=== PATIENT | female | born 1975 | race Caucasian/White ===

== ENCOUNTER 2016-11-01 11:17 | Emergency (ER) | payer MEDICARE, MEDICAID ==
[~2016-11-01] VITALS: Ht 157.5 cm; Wt 62.6 kg
--- OUTSIDE RECORDS SUMMARY | 2016-11-01 11:25 | XMS REPORT | Continuity of Care Document ---
Author Author Interface Organization Interface Address Unknown Phone Unavailable Problems Problem Status Onset Date Classification Date Reported Comments Source No data available for this section Problem 05/16/2015 [employer] Medications Medication Details Route Status Patient Instructions Ordering Provider Order Date Source No Known Medications No known medications Active [employer] Allergies, Adverse Reactions, Alerts Substance Category Reaction Severity Reaction type Status Date Reported Comments Source Meperidine Assertion Drug allergy [employer] Immunizations Immunization Date Given Site Status Last Updated Comments Source No data available for this section No data available for this section [employer] Results Order Name Results Value Reference Range Date Interpretation Comments Source Vital Signs Vital Sign Value Date Comments Source Encounters Location Location Details Encounter Type Encounter Number Reason For Visit Attending Provider ADM Date DC Date Status Source [facility] [id number] Outpatient [id number] Mireille Puls 03/14/2015 04/11/2015 [id number] [id number] Mireille Puls 04/12/2015 05/12/2015 [facility] [employer] [facility] [id number] Mireille Puls 03/14/2015 04/12/2015 [employer] [id number] Mireille Puls 04/12/2015 05/13/2015 [employer] Procedures Procedure Code Date Perfomer Comments Source No data available for this section [employer]
[2016-11-01] MEDS ORDERED: DULO30CA3 PO ×2 (11:52→13:48)
[2016-11-01] MEDS ORDERED: ONDA8TAB6 PO (11:52)
[2016-11-01] MEDS ORDERED: OMEP20CA12 PO (11:52)
[2016-11-01] MEDS ORDERED: DULO60CA6 PO ×2 (11:52→13:48)
[2016-11-01] MEDS ORDERED: RT-ALBUINH IH (11:52)
[2016-11-01] MEDS ORDERED: INSU100V16 SQ (11:52)
[2016-11-01] MEDS ORDERED: IBUP-1780 PO (11:52)
[2016-11-01] MEDS ORDERED: BUDE10.2 IH (11:52)
[2016-11-01] MEDS ORDERED: CLON2TAB3 PO ×2 (11:52→13:48)
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
[2016-11-01] MEDS ORDERED: LORazepam INJ 2 MG/ML (ATIVAN) VIAL IVP ONE (12:30)
[2016-11-01] MEDS ORDERED: DULoxetine 30 MG (CYMBALTA) CAP PO ONE ×2 (12:30)
[2016-11-01] MEDS ORDERED: ONDANSETRON 4 MG/2 ML (SDV) Z0FRAN IM ONE (12:30)
[2016-11-01 12:43] LABS: BILIRUBIN,URINE NEGATIVE (NEGATIVE); KETONES,URINE NEGATIVE (NEGATIVE); LEUKOCYTE ESTERASE ,URINE 1+ (NEGATIVE); NITRITE,URINE NEGATIVE (NEGATIVE); PH,URINE 6 (5-9); PROTEIN,URINE 1+ (NEGATIVE); UROBILINOGEN,URINE NORMAL (NORMAL)
[2016-11-01] MEDS ORDERED: LORazepam INJ 2 MG/ML (ATIVAN) VIAL IM ONE (12:45)
[2016-11-01 12:56] LABS: SQUAMOUS EPITHELIAL CELL,UR >50 /HPF
[2016-11-01] MEDS ORDERED: HALOPERIDOL 5 MG/ML (HALDOL) AMP IM ONE (14:00)
[2016-11-01 15:04] VITALS: BP 141/73
== END 2016-11-01 14:44 | disposition home or self-care (01) ==
LOC: ER 11:21
DX: F41.9 Anxiety disorder, unspecified (principal); F32.9 Major depressive disorder, single episode, unspecified; Z76.0 Encounter for issue of repeat prescription; E11.9 Type 2 diabetes mellitus without complications; F17.210 Nicotine dependence, cigarettes, uncomplicated; Z79.4 Long term (current) use of insulin
CPT/HCPCS: 81000; 87088; 96372; 99283

== ENCOUNTER 2017-05-16 17:29 | Emergency (ER) | payer MEDICARE, MEDICAID ==
[~2017-05-16] VITALS: Ht 162.6 cm; Wt 68.0 kg
[~2017-05-16 17:29] MED LIST: BUDE10.2 IH; CLON2TAB3 PO; DULO30CA3 PO; DULO60CA6 PO; IBUP-1780 PO; INSU100V16 SQ; OMEP20CA12 PO; ONDA8TAB6 PO; RT-ALBUINH IH
[2017-05-16] MEDS ORDERED: RT-ALBUINH IH (17:43)
--- NOTE | 2017-05-16 17:44 | ED Respiratory ---
General Chief Complaint: Respiratory Problems Stated Complaint: TROUBLE BREATHING Source: patient Exam Limitations: no limitations History of Present Illness Time seen by provider: 17:41 Initial Comments To ER with an advocate from the [facility] with reports of troubles breathing. Patient has emphysema and asthma and she takes Dulera and pro-air inhaler. She is unable to take diaz burris for her albuterol inhaler and her insurance will not cover it. She denies being short of breath currently. Timing/Duration: this morning Severity: moderate Allergies and Home Medications Allergies Coded Allergies: eszopiclone (Unverified Allergy, Unknown, HEART STOPPED, 11/01/16) zolpidem (Unverified Allergy, Unknown, 11/01/16) sertraline (Unverified Adverse Reaction, Unknown, 11/01/16) Home Medications Albuterol Sulfate 8.5 Gm Hfa.aer.ad, 2 PUFF IH PRN, #17 (Reported) Budesonide/Formoterol Fumarate 10.2 Gm Hfa.aer.ad, 2 PUFF IH BID, (Reported) Clonazepam 2 Mg Tablet, 4 MG PO HS & PRN, #90 (Reported) Clonazepam 2 Mg Tablet, 2 MG PO TID PRN for ANXIETY, #15 Ref 0 Prescribed by: BONY YIN on 11/01/16 1348 Duloxetine HCl 30 Mg Capsule.dr, 30 MG PO DAILY, (Reported) Duloxetine HCl 60 Mg Capsule.dr, 60 MG PO DAILY, (Reported) Duloxetine HCl 30 Mg Capsule.dr, 30 MG PO DAILY, #5 Ref 0 Prescribed by: BONY YIN on 11/01/16 1348 Duloxetine HCl 60 Mg Capsule.dr, 60 MG PO DAILY, #5 Ref 0 Prescribed by: BONY YIN on 11/01/16 1348 Ibuprofen 800 Mg Tablet, 800 MG PO Q8H PRN for PAIN, (Reported) Insulin Aspart 100 Unit/1 Ml Susp, 1,000 UNIT SQ, (Reported) Omeprazole 20 Mg Capsule.dr, 20 MG PO DAILY, (Reported) Ondansetron HCl 8 Mg Tablet, 8 MG PO DAILY, (Reported) Constitutional: see HPI EENTM: see HPI Respiratory: see HPI, short of breath Cardiovascular: no symptoms reported Genitourinary: no symptoms reported Musculoskeletal: no symptoms reported Skin: no symptoms reported Psychiatric/Neurological: No Symptoms Reported Past Sxwoeog-Cjuxib-Cxcdih Hx Patient Social History Recent Foreign Travel: No Contact w/Someone Who Travel: No Recent Hopitalizations: No Immunizations Up To Date Date of Pneumonia Vaccine: Oct 13, 2015 Date of Influenza Vaccine: Aug 13, 2016 Seasonal Allergies Seasonal Allergies: Yes Surgeries HX Surgeries: Yes (NASAL RECONSTRUCTION, D&C X 4, BILAT KNEE SURGERIES, CARPAL TUNNEL RELEASE) Surgeries: Section, Gallbladder, Hysterectomy, Orthopedic Respiratory Hx Respiratory Disorders: Yes Respiratory Disorders: Asthma, Emphysema Cardiovascular Hx Cardiac Disorders: Yes (HEART DAMAGE FROM DIABETES) Neurological Hx Neurological Disorders: Yes Neurological Disorders: Headaches /Migraines, Neuropathy Genitourinary Hx Genitourinary Disorders: Yes Genitourinary Disorders: Renal Failure Gastrointestinal Hx Gastrointestinal Disorders: Yes (GASTROPARESIS) Musculoskeletal Hx Musculoskeletal Disorders: Yes ("chronic pain all over") Musculoskeletal Disorders: Arthritis, Chronic Back Pain Endocrine Hx Endocrine Disorders: Yes Endocrine Disorders: Diabetes, Non-Insulin dep Psychosocial Hx Psychiatric Problems: Yes Behavioral Health Disorders: ADD/ADHD, Anxiety, Personality Disorder, Depression Family Medical History Significant Family History: No Pertinent Family Hx Physical Exam Vital Signs Capillary Refill : General Appearance: WD/WN, no apparent distress Eyes: Bilateral Eye EOMI, Bilateral Eye Normal Inspection, Bilateral Eye PERRL HEENT: PERRL/EOMI, normal ENT inspection Neck: non-tender, full range of motion Respiratory: lungs clear, normal breath sounds, no respiratory distress, no accessory muscle use, No decreased breath sounds, No crackles, No rales, No rhonchi, No stridor, No wheezing Cardiovascular: regular rate, rhythm, no murmur Gastrointestinal: normal bowel sounds, non tender, soft Extremities: normal range of motion, non-tender Neurologic/Psychiatric: alert, normal mood/affect, oriented x 3 Skin: normal color, warm/dry Progress/Results/Core Measures Results/Orders My Orders Orders - YAA DIALLO APRN Rx-Albuterol Inhaler (Rx-Proair) (05/16/17 17:40) Departure Impression Impression: Primary Impression: Encounter for medication refill Disposition: HOME, SELF-CARE Condition: Stable Departure-Patient Inst. Decision time for Depature: 17:42 Referrals: NO,LOCAL PHYSICIAN (PCP/Family) Primary Care Physician Patient Instructions: NO INSTRUCTIONS GIVEN Add. Discharge Instructions: All discharge instructions reviewed with patient and/or family. Voiced understanding. Scripts Albuterol Sulfate (PROAIR HFA) 1 Puff Puff 2 PUFF IH Q4H Y for WHEEZING, #1 PUFF Diagnosis: reactive airway disease Prov: YAA DIALLO APRN 05/16/17 YAA DIALLO APRN May 16, 2017 17:44
[2017-05-16] MEDS: RX-ALBUTEROL INHALER (PROAIR) 8 GM IH STA (17:52)
[2017-05-16 18:00] VITALS: BP 115/82
== END 2017-05-16 18:00 | disposition home or self-care (01) ==
LOC: EDUNIT# 17:29 → ER 17:30
DX: J43.9 Emphysema, unspecified (principal); J45.909 Unspecified asthma, uncomplicated; G43.909 Migraine, unspecified, not intractable, without status migrainosus; M19.90 Unspecified osteoarthritis, unspecified site; G89.29 Other chronic pain; E11.40 Type 2 diabetes mellitus with diabetic neuropathy, unspecified; F90.9 Attention-deficit hyperactivity disorder, unspecified type; F41.9 Anxiety disorder, unspecified; F60.9 Personality disorder, unspecified; F32.9 Major depressive disorder, single episode, unspecified; Z86.79 Personal history of other diseases of the circulatory system; Z87.59 Personal history of other complications of pregnancy, childbirth and the puerperium; Z98.890 Other specified postprocedural states; Z90.710 Acquired absence of both cervix and uterus; Z79.4 Long term (current) use of insulin
CPT/HCPCS: 99283

== ENCOUNTER 2019-04-14 07:26 | Emergency (ER) | payer MEDICARE, MEDICAID ==
[~2019-04-14] VITALS: Ht 154.9 cm; Wt 77.6 kg
[~2019-04-14 07:26] MED LIST changes: +CLON2TAB12 PO; -CLON2TAB3 PO
[2019-04-14] MEDS ORDERED: KETOROLAC 60 MG/2 ML VIAL IM STA (07:44)
[2019-04-14] MEDS ORDERED: PROMETHAZINE INJ 25 MG/ML (PHENERGAN) AMP IM STA (07:44)
[2019-04-14] MEDS ORDERED: diphenhydrAMINE 50 MG/ML INJ (BENADRYL) IM STA (07:44)
--- NOTE | 2019-04-14 07:52 | ED Headache ---
General Stated Complaint: HEADACHE; VOMITING Source: patient History of Present Illness Date Seen by Provider: Apr 14, 2019 Time Seen by Provider: 07:35 Initial Comments 43-year-old female presenting with complaints of right-sided migraine headache. She has a history of migraines and this feels similar to her usual migraine headache. She is out of her Imitrex that she normally takes for migraines and developed a headache overnight. She has nausea and vomiting with this. It has been going on since around 3 AM. Finally this morning she came in to the ER because she was tired of hearing. She plans to contact her primary doctor after the clinic opens about refilling her Imitrex. She denies any fever or chills. She's had no numbness or tingling. She has no symptoms of normal for her regular migraine headaches. Allergies and Home Medications Allergies Coded Allergies: eszopiclone (Unverified Allergy, Unknown, HEART STOPPED, 11/01/16) zolpidem (Unverified Allergy, Unknown, 11/01/16) sertraline (Unverified Adverse Reaction, Unknown, 11/01/16) Home Medications Albuterol Sulfate 8.5 Gm Hfa.aer.ad, 2 PUFF IH PRN, (Reported) Albuterol Sulfate 1 Puff Puff, 2 PUFF IH Q4H PRN for WHEEZING Diagnosis: reactive airway disease Prescribed by: YAA DIALLO on 05/16/17 174 Budesonide/Formoterol Fumarate 10.2 Gm Hfa.aer.ad, 2 PUFF IH BID, (Reported) Clonazepam 2 Mg Tablet, 4 MG PO HS & PRN, (Reported) Clonazepam 2 Mg Tablet, 2 MG PO TID PRN for ANXIETY Prescribed by: BONY YIN on 11/01/16 134 Duloxetine HCl 30 Mg Capsule.dr, 30 MG PO DAILY, (Reported) Duloxetine HCl 60 Mg Capsule.dr, 60 MG PO DAILY, (Reported) Duloxetine HCl 30 Mg Capsule.dr, 30 MG PO DAILY Prescribed by: BONY YIN on 11/01/16 1348 Duloxetine HCl 60 Mg Capsule.dr, 60 MG PO DAILY Prescribed by: BONY YIN on 11/01/16 1348 Ibuprofen 800 Mg Tablet, 800 MG PO Q8H PRN for PAIN, (Reported) Omeprazole 20 Mg Capsule.dr, 20 MG PO DAILY, (Reported) Ondansetron HCl 8 Mg Tablet, 8 MG PO DAILY, (Reported) Patient Home Medication List Home Medication List Reviewed: Yes Review of Systems Review of Systems Constitutional: see HPI Eyes: Photophobia Ears, Nose, Mouth, Throat: no symptoms reported Respiratory: no symptoms reported Cardiovascular: no symptoms reported Gastrointestinal: see HPI Genitourinary: No dysuria Musculoskeletal: neck pain (tension in the back of her neck which is typical with her headaches) Skin: no symptoms reported Psychiatric/Neurological: Headache (right-sided migraine headache); Denies Numbness, Denies Paresthesia, Denies Weakness Past Zhoeheo-Knmoyf-Wlikrr Hx Past Med/Social Hx: Reviewed Nursing Past Med/Soc Hx Patient Social History Recent Hopitalizations: No Immunizations Up To Date Date of Pneumonia Vaccine: Oct 13, 2015 Date of Influenza Vaccine: Aug 13, 2016 Seasonal Allergies Seasonal Allergies: Yes Past Medical History Surgeries: Yes (NASAL RECONSTRUCTION, D&C X 4, BILAT KNEE SURGERIES, CARPAL TUNNEL RELEASE) Section, Gallbladder, Hysterectomy, Orthopedic Respiratory: Yes Asthma, Emphysema Cardiac: Yes (HEART DAMAGE FROM DIABETES) Neurological: Yes Headaches /Migraines, Neuropathy Renal Failure Gastrointestinal: Yes (GASTROPARESIS) Musculoskeletal: Yes ("chronic pain all over") Arthritis, Chronic Back Pain Endocrine: Yes Diabetes, Non-Insulin dep Psychosocial: Yes ADD/ADHD, Anxiety, Personality Disorder, Depression Family Medical History No Pertinent Family Hx Physical Exam Vital Signs Vital Signs - First Documented 04/14/19 07:37 Temp 96.1 Pulse 89 Resp 18 B/P (MAP) 132/97 (109) Pulse Ox 95 Capillary Refill : Height, Weight, BMI Height: 5'4.00" Weight: 150lbs. oz. [id number]; BMI Method:Estimated General Appearance: WD/WN, mild distress HEENT: PERRL/EOMI, normal ENT inspection, pharynx normal Neck: non-tender, full range of motion, supple, normal inspection Cardiovascular: normal peripheral pulses, regular rate, rhythm Respiratory: chest non-tender, lungs clear, normal breath sounds Psychiatric: alert, oriented x 3 Crainal Nerves: normal hearing, normal speech, PERRL Coordination/Gait: normal gait Motor/Sensory: no motor deficit, no sensory deficit Skin: normal color, warm/dry Progress/Results/Core Measures Results/Orders My Orders Orders - ENYART,UMU E MD Ketorolac Injection (Toradol Injection) (04/14/19 07:44) Diphenhydramine Injection (Benadryl Inje (04/14/19 07:44) Promethazine Injection (Phenergan Injec (04/14/19 07:44) Vital Signs/I&O 04/14/19 04/14/19 07:37 07:55 Temp 96.1 96.1 Pulse 89 89 Resp 18 18 B/P (MAP) 132/97 (109) 132/97 (109) Pulse Ox 95 95 Progress Progress Note : Progress Note Give Toradol, Benadryl, Phenergan IM injections and patient to go home and rest. Counseled to check with Dr. Hughes during office hours about refilling the Imitrex. Departure Impression Primary Impression: Migraine headache without aura Qualified Codes: G43.009 - Migraine without aura, not intractable, without status migrainosus Disposition: 01 HOME, SELF-CARE Condition: Stable Departure-Patient Inst. Decision time for Depature: 07:51 Referrals: DESTIN HUGHES DO (PCP/Family) Primary Care Physician Patient Instructions: Migraine Headache (DC) Add. Discharge Instructions: Rest in a cool dark room. Contact Dr. Hughes's office about a refill of your routine medicines for your Migraine headaches Stay well hydrated and get plenty of rest UMU WALTER MD Apr 14, 2019 07:52
[2019-04-14 07:55] VITALS: BP 132/97
== END 2019-04-14 07:58 | disposition home or self-care (01) ==
LOC: EDUNIT# 07:26 → ER FS 07:28
DX: G43.009 Migraine without aura, not intractable, without status migrainosus (principal); J43.9 Emphysema, unspecified; J45.909 Unspecified asthma, uncomplicated; E11.43 Type 2 diabetes mellitus with diabetic autonomic (poly)neuropathy; K31.84 Gastroparesis; E11.69 Type 2 diabetes mellitus with other specified complication; I99.9 Unspecified disorder of circulatory system; F90.9 Attention-deficit hyperactivity disorder, unspecified type; F41.9 Anxiety disorder, unspecified; F60.9 Personality disorder, unspecified; Z88.8 Allergy status to other drugs, medicaments and biological substances; Z90.710 Acquired absence of both cervix and uterus
CPT/HCPCS: 99284

== ENCOUNTER → 2020-07-17 | Outpatient (CLI) | payer MEDICARE, MEDICAID ==
[~2020-07-17] MED LIST changes: -OMEP20CA12 PO; +OMEP20CA18 PO
== END ==
LOC: CARD 11:00
PROVIDERS: ATTEND Internal Medicine Cardiovascular Disease
DX: I10 Essential (primary) hypertension (principal); E78.5 Hyperlipidemia, unspecified; E11.69 Type 2 diabetes mellitus with other specified complication; B19.20 Unspecified viral hepatitis C without hepatic coma
CPT/HCPCS: 93306

== ENCOUNTER → 2020-12-04 | Outpatient (CLI) | payer MEDICARE, MEDICAID ==
[~2020-12-04] MED LIST changes: +RT-ALBUTEROL SULF 2.5 MG/3 ML PRE-MIX VIAL INH ONE
== END ==
LOC: RT 15:09
PROVIDERS: ATTEND Nurse Practitioner Family
DX: J43.8 Other emphysema (principal); I51.9 Heart disease, unspecified; G47.9 Sleep disorder, unspecified
CPT/HCPCS: 94060; 94726; 94729

== ENCOUNTER → 2022-05-16 | Outpatient (CLI) | payer MEDICARE, MEDICAID ==
[~2022-05-16] MED LIST changes: -DULO60CA6 PO; +DULO60CA7 PO; -RT-ALBUTEROL SULF 2.5 MG/3 ML PRE-MIX VIAL INH ONE
== END ==
LOC: CARDFS 11:56
PROVIDERS: ATTEND Physician Assistant
DX: Q21.1 Atrial septal defect (principal); I51.7 Cardiomegaly
CPT/HCPCS: 93306

== ENCOUNTER 2022-05-24 11:07 | Emergency (ER) | payer MEDICARE, MEDICAID ==
[~2022-05-24] VITALS: Ht 157 cm; Wt 52.3 kg
[2022-05-24] MEDS ORDERED: morphine INJ 10 MG/ML 1ML (SYR OR VIAL) IM STA (11:26)
[2022-05-24] MEDS ORDERED: ONDANSETRON 4 MG (ZOFRAN) ORAL DISSOLVE TAB PO STA (11:26)
--- NOTE | 2022-05-24 12:19 | Diagnostic Imaging Report ---
INDICATION: Trauma, right hand pain. TECHNIQUE: Three views of the right hand. CORRELATION STUDY: None FINDINGS: Comminuted impacted, hourly displaced fracture at the 4th metacarpal. There is also an obliquely oriented fracture of the distal 5th metacarpal shaft with slight volar offset and angulation. The articular surfaces are smooth. Remaining osseous structures appear to be intact. Little finger is held in partial flexion at the distal interphalangeal joint . There is a linear density adjacent to the 3rd metacarpal head. Anterolisthesis of bone fragment or perhaps soft tissue foreign body. IMPRESSION: 1. Comminuted, slightly impacted outwardly displaced fracture at the 4th metacarpal. 2. Obliquely oriented impacted angulated, slightly offset to metacarpal fracture. It is noted the distal interphalangeal joint is held in flexion. Tendon injury not excluded. 3. Question additional bone density versus foreign body adjacent to the 3rd metacarpal head. Dictated by: Dictated on workstation # [id number]
[2022-05-24] MEDS ORDERED: oxyCODONE/APAP 5/325MG (PERCOCET 5) TABLET PO ONE (12:45)
--- NOTE | 2022-05-24 12:55 | ED Upper Extremity ---
General Chief Complaint: Upper Extremity Stated Complaint: RT HAND INJ Nursing Triage Note: This patient presents to the ED via private vehicle, accompanied by her boyfriend with c/o a "broken hand." She states that she grabbed her dogs leash when he began to take off, the dog drug her and "broke her hand" as her hand was wrapped around the leash. The patient is unable to move hand, and rates her pain a 7/10 when not moving. Source: patient Exam Limitations: no limitations History of Present Illness Date Seen by Provider: May 24, 2022 Time Seen by Provider: 11:25 Initial Comments Patient is a 46-year-old right-handed female presents with right hand injury after having her hand aggressively pulled in a dog leash just prior to ED arrival. Patient with pain swelling and deformity of right hand. No other injury or pain complaints. Onset: just prior to arrival Pain/Injury Location: right hand Method of Injury: other Modifying Factors: Improves With Other Allergies and Home Medications Allergies Coded Allergies: eszopiclone (Unverified Allergy, Unknown, HEART STOPPED, 11/01/16) zolpidem (Unverified Allergy, Unknown, 11/01/16) sertraline (Unverified Adverse Reaction, Unknown, 11/01/16) Patient Home Medication List Home Medication List Reviewed: Yes Albuterol Sulfate (Proair Hfa) 8.5 Gm Hfa.aer.ad, 2 PUFF IH PRN, (Reported) Entered as Reported by: LION DAMICO on 11/01/16 1152 Albuterol Sulfate (Proair Hfa) 1 Puff Puff, 2 PUFF IH Q4H PRN for WHEEZING Prescribed by: YAA DIALLO on 05/16/17 1743 Budesonide/Formoterol Fumarate (Symbicort 160-4.5 Mcg Inhaler) 10.2 Gm Hfa.aer.ad, 2 PUFF IH BID, (Reported) Entered as Reported by: LION DAMICO on 11/01/16 1152 Clonazepam (Clonazepam) 2 Mg Tablet, 4 MG PO HS & PRN, (Reported) Entered as Reported by: LION DAMICO on 11/01/16 1152 Clonazepam (Clonazepam) 2 Mg Tablet, 2 MG PO TID PRN for ANXIETY Prescribed by: BONY YIN on 11/01/16 1348 Duloxetine HCl (Cymbalta) 30 Mg Capsule.dr, 30 MG PO DAILY, (Reported) Entered as Reported by: LION DAMICO on 11/01/16 115 Duloxetine HCl (Cymbalta) 60 Mg Capsule.dr, 60 MG PO DAILY, (Reported) Entered as Reported by: LION DAMICO on 11/01/16 115 Duloxetine HCl (Cymbalta) 30 Mg Capsule.dr, 30 MG PO DAILY Prescribed by: BONY YIN on 11/01/16 1348 Duloxetine HCl (Cymbalta) 60 Mg Capsule.dr, 60 MG PO DAILY Prescribed by: BONY YIN on 11/01/16 134 Ibuprofen (Ibuprofen) 800 Mg Tablet, 800 MG PO Q8H PRN for PAIN, (Reported) Entered as Reported by: LION DAMICO on 11/01/16 115 Insulin Aspart (Novolog) 100 Unit/1 Ml Susp, 1,000 UNIT SQ, (Reported) Entered as Reported by: LION DAMICO on 11/01/16 115 Omeprazole (Omeprazole) 20 Mg Capsule.dr, 20 MG PO DAILY, (Reported) Entered as Reported by: LION DAMICO on 11/01/16 115 Ondansetron HCl (Zofran) 8 Mg Tablet, 8 MG PO DAILY, (Reported) Entered as Reported by: LION DAMICO on 11/01/16 115 Review of Systems Constitutional: see HPI EENTM: see HPI Respiratory: see HPI Cardiovascular: see HPI Gastrointestinal: see HPI Genitourinary: see HPI Musculoskeletal: see HPI Past Czdkkoh-Pknfsn-Apkzcu Hx Patient Social History Tobacco Use?: Yes Tobacco type used: Cigarettes Smoking Status: Current Everyday Smoker Substance use?: Yes Substance type: Marijuana Substance frequency: Couple times a week Alcohol Use?: No Immunizations Up To Date First/Initial COVID19 Vaccinat: Received; unknown date Second COVID19 Vaccination Tello: Received; unknown date COVID19 Vaccine Director Of Enterprise Architecture: Luz Marina Seasonal Allergies Seasonal Allergies: Yes Past Medical History Surgery/Hospitalization HX: Heart failure; diabetes; ashtma; depression Surgeries: Yes (NASAL RECONSTRUCTION, D&C X 4, BILAT KNEE SURGERIES, CARPAL TUNNEL RELEASE) Section, Gallbladder, Hysterectomy, Orthopedic Respiratory: Yes Asthma, Emphysema Cardiac: Yes (HEART DAMAGE FROM DIABETES) Neurological: Yes Headaches /Migraines, Neuropathy Genitourinary: No Renal Failure Gastrointestinal: Yes (GASTROPARESIS) Musculoskeletal: Yes ("chronic pain all over") Arthritis, Chronic Back Pain Endocrine: Yes Diabetes, Non-Insulin dep HEENT: No Cancer: No Psychosocial: Yes ADD/ADHD, Anxiety, Personality Disorder, Depression Integumentary: No Family Medical History No Pertinent Family Hx Physical Exam Vital Signs Vital Signs - First Documented 05/24/22 11:13 Temp 36.2 Pulse 66 Resp 20 B/P (MAP) 97/81 (86) Pulse Ox 100 O2 Delivery Room Air Capillary Refill : Height, Weight, BMI Height: 5'1.00" Weight: 171lbs. oz. 77.264456an; 21.00 BMI Method:Stated General Appearance: WD/WN, no apparent distress HEENT: PERRL/EOMI Hand: Right, deformity (Right hand), swelling Neurologic/Tendon: normal sensation, normal motor functions Progress/Results/Core Measures Results/Orders My Orders Orders - DALIA YEH DO Hand 3 View Right (05/24/22 11:26) Morphine Injection (Morphine Injection (05/24/22 11:26) Ondansetron Oral Dissolve Tab (Zofran (05/24/22 11:26) Ice: Apply To Affected Area (05/24/22 11:26) Oxycodone/Apap 5/325mg Tablet (Percocet (05/24/22 12:45) Medications Given in ED Current Medications Medications Dose Ordered Sig/Anahy Route Start Time Stop Time Status Last Admin Dose Admin Oxycodone/ Acetaminophen 1 tab ONCE ONCE PO 05/24/22 12:45 05/24/22 12:46 DC 05/24/22 12:49 1 TAB Vital Signs/I&O 05/24/22 11:13 Temp 36.2 Pulse 66 Resp 20 B/P (MAP) 97/81 (86) Pulse Ox 100 O2 Delivery Room Air Blood Pressure Mean: 86 Departure Communication (Admissions) Right hand x-ray: Fourth and fifth metacarpal fracture Case reviewed with Dr. Cruz on-call for radiology at [facility]. Recommendations splint, pain control and outpatient follow-up early next week. Follow-up appointment arrangements made with patient. Return precautions reviewed. Patient verbalizes understanding agreement discharge instructions prior to departure Impression Primary Impression: Closed right hand fracture Disposition: 01 HOME, SELF-CARE Condition: Stable Departure-Patient Inst. Decision time for Depature: 13:04 Referrals: MARISA HAMILTON APRN (PCP) Primary Care Physician [facility] (Family) Primary Care Physician Patient Instructions: Hand Fracture ED Add. Discharge Instructions: You were evaluated in the emergency department for right hand injury. X-rays sh ow fractures of your fourth and fifth metacarpals. You have a follow-up appointment with Dr. Cruz, at [facility] on 05/27/2022 at 1 PM in [place] at the medical office building [address] [facility] [facility] [id number], [place], [address].. All discharge instructions reviewed with patient and/or family. Voiced understanding. DALIA YEH DO May 24, 2022 12:55
[2022-05-24] MEDS ORDERED: ACHD5005 PO (13:06)
[2022-05-24 13:18] VITALS: BP 101/68
== END 2022-05-24 13:13 | disposition home or self-care (01) ==
LOC: EDUNIT# 11:07 → ER FS 11:08
DX: S62.91XA Unspecified fracture of right hand, initial encounter for closed fracture (principal); F17.210 Nicotine dependence, cigarettes, uncomplicated; W54.8XXA Other contact with dog, initial encounter
CPT/HCPCS: 73130; 99283; A4565

== ENCOUNTER → 2023-05-19 | Outpatient (CLI) | payer MEDICARE, MEDICAID ==
[~2023-05-19] MED LIST changes: +ACHD5005 PO; +ALBU8.5H6 IH; -RT-ALBUINH IH
== END ==
LOC: CARD 13:12
PROVIDERS: ATTEND Physician Assistant
DX: I11.9 Hypertensive heart disease without heart failure (principal); E78.5 Hyperlipidemia, unspecified
CPT/HCPCS: 93306